=== PATIENT | male | born 1960 | race Caucasian/White ===

== ENCOUNTER 2017-09-04 15:53 | Inpatient (IN) | payer OTHER ==
[~2017-09-04 15:53] MED LIST: KETO10 PO; LORTA5 PO; PHEN37.511 PO
[2017-09-04] MEDS ORDERED: DIPHTH/TETANUS/ACEL PERTUSSIS (BOOSTER) 0.5 ML VIAL/PFS IM ONE (16:01)
[2017-09-04 16:12] VITALS: O2SAT 100
[2017-09-04 16:17] LABS: BASOPHIL # 0.1 TH/MM3 (0-0.2); BASOPHIL % 0.7 % (0.0-2.0); EOSINOPHIL # 0.3 TH/MM3 (0-0.4); EOSINOPHIL % 2.5 % (0.0-4.0); HEMATOCRIT 45.7 % (39.0-51.0); HEMOGLOBIN 15.3 GM/DL (13.0-17.0); LYMPH % 29.6 % (9.0-44.0); LYMPHOCYTE # 3.4 TH/MM3 (1.0-4.8); MEAN CELL VOLUME 89.7 FL (80.0-100.0); MEAN CORPUSCULAR HEMOGLOBIN 30.1 PG (27.0-34.0); MEAN CORPUSCULAR HGB CONC 33.5 % (32.0-36.0); MEAN PLATELET VOLUME 7.8 FL (7.0-11.0); MONO % 7.2 % (0.0-8.0); MONOCYTE # 0.8 TH/MM3 (0-0.9); PLATELET COUNT 256 TH/MM3 (150-450); RED BLOOD COUNT 5.09 MIL/MM3 (4.50-5.90); WHITE BLOOD COUNT 11.6 TH/MM3 (4.0-11.0)
[2017-09-04] MEDS ORDERED: IOHEXOL 350 MG/ML 10 ML VIAL (for RAD DIAG) IVCONTRAST ONE (16:22)
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
[2017-09-04 16:27] LABS: INTERNATIONAL NORMALIZED RATIO 1.1 RATIO; PROTHROMBIN TIME - PATIENT 10.9 SEC (9.8-11.6)
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
[2017-09-04 16:45] VITALS: BP 106/61; PULSE 68; RESP 18; O2SAT 100
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
[2017-09-04] MEDS ORDERED: HYDROmorphone HCL PF 2 MG/ML VIAL IVS ONE (17:30)
[2017-09-04] MEDS ORDERED: ONDANSETRON HCL 4 MG/2 ML VIAL IV PUSH ONE (17:30)
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
[2017-09-04 18:07] VITALS: BP 109/64; PULSE 64; RESP 18; O2SAT 100
[2017-09-04 18:35] VITALS: BP 108/60; PULSE 62; RESP 18; O2SAT 100
[2017-09-04] MEDS ORDERED: SODIUM CHLOR 0.9% 1000 ML INJ 1,000 ML IV SCH (18:37)
[2017-09-04] MEDS ORDERED: KETOROLAC TROMETHAMINE 30 MG/ML (IVP) VIAL IVP PRN (18:45)
[2017-09-04] MEDS ORDERED: ACETAMINOPHEN/HYDROcodone 325 MG/5 MG TAB PO PRN (18:45)
[2017-09-04] MEDS ORDERED: CHLORHEXIDINE GLUCONATE 2 % 1 PACK (2 CLOTHS) TOP PRN (18:45)
[2017-09-04] MEDS ORDERED: MISCELLANEOUS NURSING INFORMATION XX SCH (18:45)
[2017-09-04] MEDS ORDERED: ASPI81CH6 CHEW (19:10)
[2017-09-04 19:28] VITALS: BP 104/62; PULSE 77; RESP 18; O2SAT 98
[2017-09-04] MEDS: PANTOPRAZOLE SODIUM 40 MG VIAL IVP SCH (19:44)
[2017-09-04 20:30] VITALS: BP 111/76; PULSE 76; RESP 18; TEMP 97.8; O2SAT 97
[2017-09-04] MEDS: ACETAMINOPHEN/HYDROcodone 325 MG/5 MG TAB PO PRN (21:02)
[2017-09-04] MEDS: DOCUSATE SODIUM 100 MG CAP PO SCH (21:02)
[2017-09-04] MEDS: BACITRACIN TOP OINT 15 GM TUBE TOP SCH (21:02)
[2017-09-04] MEDS: MORPHINE SULFATE 2 MG/ML INJ IV PUSH PRN (23:14)
[2017-09-04] MEDS: METHOCARBAMOL INJ 1,000 MG in SODIUM CHLOR 0.9% 250 ML INJ 240 ML IV SCH (23:14)
[2017-09-04] MEDS ORDERED: ROBA500T PO (23:40)
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
[2017-09-05] VITALS (9 sets, daily range): BP systolic 81–113; BP diastolic 61–80; PULSE 80–93; RESP 17–18; TEMP 95.5–98.7; O2SAT 93–98
[2017-09-05] MEDS: KETOROLAC TROMETHAMINE 30 MG/ML (IVP) VIAL IV PUSH SCH ×4 (00:30→16:13)
[2017-09-05] MEDS ORDERED: CHLORHEXIDINE GLUCONATE 2 % 1 PACK (2 CLOTHS) TOP SCH (04:00)
[2017-09-05] MEDS: ACETAMINOPHEN/HYDROcodone 325 MG/5 MG TAB PO PRN ×5 (04:41→21:15)
[2017-09-05] MEDS: METHOCARBAMOL INJ 1,000 MG in SODIUM CHLOR 0.9% 250 ML INJ 240 ML IV SCH ×2 (05:54→13:26)
[2017-09-05 06:18] LABS: AUTOMATED NEUTROPHIL # 10.6 TH/MM3 (1.8-7.7); BASOPHIL % 0.2 % (0.0-2.0); EOSINOPHIL % 0.1 % (0.0-4.0); HEMATOCRIT 41.3 % (39.0-51.0); HEMOGLOBIN 13.9 GM/DL (13.0-17.0); LYMPH % 8.5 % (9.0-44.0); LYMPHOCYTE # 1.1 TH/MM3 (1.0-4.8); MEAN CELL VOLUME 90.9 FL (80.0-100.0); MEAN CORPUSCULAR HEMOGLOBIN 30.6 PG (27.0-34.0); MEAN CORPUSCULAR HGB CONC 33.7 % (32.0-36.0); MEAN PLATELET VOLUME 8.1 FL (7.0-11.0); MONOCYTE # 1.5 TH/MM3 (0-0.9); NEUT % 80.2 % (16.0-70.0); PLATELET COUNT 226 TH/MM3 (150-450); RED BLOOD COUNT 4.55 MIL/MM3 (4.50-5.90); RED CELL DISTRIBUTION WIDTH 13.3 % (11.6-17.2); WHITE BLOOD COUNT 13.2 TH/MM3 (4.0-11.0)
[2017-09-05 06:36] LABS: BICARBONATE 20.9 MEQ/L (21.0-32.0); CALCIUM 7.9 MG/DL (8.5-10.1); CREATININE 1.33 MG/DL (0.60-1.30)
[2017-09-05] MEDS: SODIUM CHLORIDE 0.9% FLUSH 10 ML FLUSH IV FLUSH PRN (08:18)
[2017-09-05] MEDS: MAGNESIUM HYDROXIDE SUSP 30 ML CUP PO SCH ×2 (08:18→21:14)
[2017-09-05] MEDS: LIDOCAINE HCL 5% PATCH T-DERMAL SCH (08:18)
[2017-09-05] MEDS: DOCUSATE SODIUM 100 MG CAP PO SCH ×2 (08:18→21:15)
[2017-09-05] MEDS: BACITRACIN TOP OINT 15 GM TUBE TOP SCH ×2 (08:25→21:15)
--- NOTE | 2017-09-05 09:29 | HHI.PR ---
Subjective Subjective Notes PTD: 1 Patient lying in bed. No distress noted. Patient states, "it's hurting. It can go from 0-20 real fast" Patient states he lives with his in [place]. Objective Vitals/I&O Vital Signs Date Time Temp Pulse Resp B/P (MAP) Pulse Ox O2 Delivery O2 Flow Rate FiO2 09/05/17 08:17 94/62 (73) 09/05/17 07:30 96.6 80 18 93 09/04/17 19:28 Nasal Cannula 2.00 Labs Laboratory Tests Test 09/04/17 16:00 09/05/17 04:45 White Blood Count 11.6 13.2 Red Blood Count 5.09 4.55 Hemoglobin 15.3 13.9 Bedside Hemoglobin 16.0 Hematocrit 45.7 41.3 Bedside Hematocrit 47.0 Mean Corpuscular Volume 89.7 90.9 Mean Corpuscular Hemoglobin 30.1 30.6 Mean Corpuscular Hemoglobin Concent 33.5 33.7 Red Cell Distribution Width 13.0 13.3 Platelet Count 256 226 Mean Platelet Volume 7.8 8.1 Neutrophils (%) (Auto) 60.0 80.2 Lymphocytes (%) (Auto) 29.6 8.5 Monocytes (%) (Auto) 7.2 11.0 Eosinophils (%) (Auto) 2.5 0.1 Basophils (%) (Auto) 0.7 0.2 Neutrophils # (Auto) 7.0 10.6 Lymphocytes # (Auto) 3.4 1.1 Monocytes # (Auto) 0.8 1.5 Eosinophils # (Auto) 0.3 0.0 Basophils # (Auto) 0.1 0.0 CBC Comment DIFF FINAL DIFF FINAL Differential Comment Prothrombin Time 10.9 Prothromb Time International Ratio 1.1 Activated Partial Thromboplast Time 22.9 Bedside Sodium 142 Bedside Potassium 3.8 Bedside Chloride 101 Bedside Blood Urea Nitrogen 16 Bedside Creatinine 1.2 Bedside Glucose 106 Blood Urea Nitrogen 24 Creatinine 1.33 Random Glucose 161 Calcium Level 7.9 Sodium Level 138 Potassium Level 4.9 Chloride Level 108 Carbon Dioxide Level 20.9 Anion Gap 9 Estimat Glomerular Filtration Rate 46 Radiology Last Impressions Pelvis X-Ray 09/04/17 1559 Signed Impressions: Service Date/Time: Monday, September 04, 2017 15:58 - CONCLUSION: No gross evidence of fracture. Prabhu Domingo MD Head CT 09/04/17 1559 Signed Impressions: Service Date/Time: Monday, September 04, 2017 16:13 - CONCLUSION: No acute intracranial findings. Prabhu Domingo MD Chest X-Ray 09/04/17 155 Signed Impressions: Service Date/Time: Monday, September 04, 2017 15:58 - CONCLUSION: No gross acute cardiopulmonary disease identified. Prabhu Domingo MD Chest CT 09/04/17 1559 Signed Impressions: Service Date/Time: Monday, September 04, 2017 16:22 - CONCLUSION: Multiple left-sided rib fractures. Small left pneumothorax. Prabhu Domingo MD Cervical Spine CT 09/04/17 1559 Signed Impressions: Service Date/Time: Monday, September 04, 2017 16:13 - CONCLUSION: 1. No evidence of fracture. 2. Multilevel degenerative findings. Prominent right- sided facet arthrosis at C4-5. 3. Broad-based disc osteophyte complex at C6-7 resulting in minimal central canal narrowing. Prabhu Domingo MD Abdomen/Pelvis CT 09/04/17 1559 Signed Impressions: Service Date/Time: Monday, September 04, 2017 16:22 - CONCLUSION: Multiple displaced left-sided rib fractures. Small left pneumothorax. These findings will also be evaluated on chest CT. No evidence of acute traumatic injury in the abdomen. Prabhu Domingo MD Shoulder X-Ray 09/04/17 0000 Signed Impressions: Service Date/Time: Monday, September 04, 2017 15:58 - CONCLUSION: Lateral left-sided rib fractures. Prabhu Domingo MD Narrative Exam GENERAL: This is a 69-year-old male lying in bed. No distress noted. SKIN: Warm and dry. HEAD: Atraumatic. Normocephalic. EYES: PERRLA ENT: No nasal bleeding or discharge. Mucous membranes pink and moist. NECK: Trachea midline. No JVD. CARDIOVASCULAR: Regular rate and rhythm. RESPIRATORY: NC 2L. No accessory muscle use. Lungs are clear to auscultation. Breath sounds equal bilaterally. No distress or dyspnea. GASTROINTESTINAL: BS + x 4 quads. Abdomen soft, non-tender, nondistended. MUSCULOSKELETAL: Extremities without cyanosis, or edema. + peripheral pulses x 4 extremities. Warm with good capillary refill and sensation. MAEW. NEUROLOGICAL: Awake and alert. Normal speech and pattern. A/P Problem List: (1) Ribs, multiple fractures ICD Codes: S22.49XA - Multiple fractures of ribs, unspecified side, initial encounter for closed fracture Status: Acute (2) Pneumothorax ICD Codes: J93.9 - Pneumothorax, unspecified Status: Acute Assessment and Plan [place]: This is a 69 year old male who was involved in an [facility]. + Helmet. He was found on the side of the road. GCS 14 with repetitive questioning. INJURIES: LEFT rib fx (3-8) LEFT PTX PMHx: Arthritis Procedures: Consults: Case management. Diet: Regular diet. Tolerating po diet. Encourage good po intake with each meal. Pulmonary: Encourage good pulmonary toileting. IS at bedside and pt encouraged to use. Rationale for use explained to patient, and verbalized understanding. Intensified with a salima and FAITH PAP. Still waiting for morning chest x-ray to be completed - reordered chest x-ray to facilitate completion. PAIN Management: [place] 5-10 mg q 4h. Morphine 2 mg q 1h. Robaxin 1000 mg IV q 8h. Toradol 15 mg q 6h. Lidoderm patch Activity: OOB. PT and ordered GI prophylaxis: Protonix IV Bowel regimen: Colace and MOM. LBM: 0 DVT prophylaxis: Mechanical VTE with SCDs. Chemical management with Lovenox 30 BID SQ. DC Planning: Case management consulted for assistance with final discharge disposition. Emotional support provided to patient and family at bedside and plan of care discussed. Discussed with RN at bedside. Discussed pt condition and plan of care with collaborating trauma surgeon. Patient is hemodynamically stable and being managed on the med/surg floor. The trauma team will round each day, and evaluate plan of care on a daily basis. LEFT rib fx (3-8) LEFT PTX O2 as needed Supportive care Aggressive pulmonary toileting Pain management Chest x-ray as needed Still waiting for a morning chest x-ray to be completed - reordered chest x-ray. PT ordered Encourage out of bed Lovenox for DVT prophylaxis Problem Qualifiers (1) Ribs, multiple fractures: Qualified Codes: S22.42XA - Multiple fractures of ribs, left side, initial encounter for closed fracture (2) Pneumothorax: Qualified Codes: S27.0XXA - Traumatic pneumothorax, initial encounter Lucero Blanchard Sep 05, 2017 09:29
--- NOTE | 2017-09-05 11:21 | RADRPT ---
EXAM DATE/TIME: 09/05/2017 10:31 [facility] COMPARISON: CHEST SINGLE AP, September 04, 2017, 15:58. INDICATIONS : Trauma. MEDICAL HISTORY : None. SURGICAL HISTORY : None. ENCOUNTER: Subsequent ACUITY: 1 day PAIN SCORE: 10/10 LOCATION: Left chest Posterior. FINDINGS: Multiple rib fractures on the left the large left pleural effusion, probably blood. Right lung clear . The heart and pulmonary vascularity are normal. Minimal left subcutaneous emphysema. CONCLUSION: Multiple left rib fractures with large left pleural effusion. Carlos Eastman MD FACR on September 05, 2017 at 11:19 Board Certified Radiologist. This report was verified electronically.
[2017-09-05] MEDS: ENOXAPARIN SODIUM 30 MG/0.3 ML SYRINGE SQ SCH (12:02)
[2017-09-05] MEDS: PANTOPRAZOLE SODIUM 40 MG VIAL IVP SCH (16:12)
[2017-09-05] MEDS: METHOCARBAMOL 500 MG TAB PO SCH (21:15)
[2017-09-05 22:46] LABS: HEMATOCRIT 36.8 % (39.0-51.0); HEMOGLOBIN 12.4 GM/DL (13.0-17.0); MEAN CELL VOLUME 90.2 FL (80.0-100.0); MEAN CORPUSCULAR HEMOGLOBIN 30.4 PG (27.0-34.0); MEAN CORPUSCULAR HGB CONC 33.7 % (32.0-36.0); PLATELET COUNT 215 TH/MM3 (150-450); RED BLOOD COUNT 4.08 MIL/MM3 (4.50-5.90); RED CELL DISTRIBUTION WIDTH 13.3 % (11.6-17.2); WHITE BLOOD COUNT 13.5 TH/MM3 (4.0-11.0)
[2017-09-06] VITALS (8 sets, daily range): BP systolic 101–135; BP diastolic 56–72; PULSE 75–90; RESP 17–18; TEMP 97.2–99.4; O2SAT 92–98
[2017-09-06] MEDS: KETOROLAC TROMETHAMINE 30 MG/ML (IVP) VIAL IV PUSH SCH ×5 (00:13→23:06)
[2017-09-06] MEDS: ACETAMINOPHEN/HYDROcodone 325 MG/5 MG TAB PO PRN (05:17)
[2017-09-06] MEDS: METHOCARBAMOL 500 MG TAB PO SCH ×3 (05:17→23:06)
--- NOTE | 2017-09-06 06:17 | RADRPT ---
EXAM DATE/TIME: 09/06/2017 05:10 [facility] COMPARISON: CHEST SINGLE AP, September 05, 2017, 10:31. INDICATIONS : Short of breath and congestion. MEDICAL HISTORY : None. SURGICAL HISTORY : None. ENCOUNTER: Subsequent ACUITY: 2 days PAIN SCORE: 0/10 LOCATION: Bilateral chest FINDINGS: Multiple rib fractures are again seen. Left basilar opacity is present may be due to a combination of consolidation and or pleural effusion. Mild right lung base atelectasis and/or infiltrate is seen. N o definite pneumothorax is seen for technique. CONCLUSION: Left basilar opacity is present may be due to a combination of consolidation and or pleural effusion and a slight right lung base atelectasis and/or infiltrate. Aba Walls MD on September 06, 2017 at 6:15 Board Certified Radiologist. This report was verified electronically.
[2017-09-06] MEDS: LIDOCAINE HCL 5% PATCH T-DERMAL SCH (09:00)
[2017-09-06] MEDS: MAGNESIUM HYDROXIDE SUSP 30 ML CUP PO SCH ×2 (09:00→19:48)
[2017-09-06] MEDS: DOCUSATE SODIUM 100 MG CAP PO SCH ×2 (09:00→19:48)
[2017-09-06] MEDS: BACITRACIN TOP OINT 15 GM TUBE TOP SCH ×2 (09:07→19:51)
[2017-09-06] MEDS: MORPHINE SULFATE 2 MG/ML INJ IV PUSH PRN (11:47)
[2017-09-06] MEDS ORDERED: LORazepam 2 MG/ML VIAL ONE (11:47)
[2017-09-06] MEDS ORDERED: LIDOCAINE HCL 1% 20 ML VIAL ONE (11:49)
[2017-09-06] MEDS ORDERED: oxyCODONE/ACETAMINOPHEN 5 MG/325 MG TAB PO PRN (12:15)
--- NOTE | 2017-09-06 12:22 | HHI.PR ---
Subjective Subjective Notes PTD: 2 Patient lying in bed. No distress noted. at bedside. Patient states, "I have no pain if I'm just sitting here doing nothing, but I go from 0-20 if I move." "It's more of a muscle spasm". Objective Vitals/I&O Vital Signs Date Time Temp Pulse Resp B/P (MAP) Pulse Ox O2 Delivery O2 Flow Rate FiO2 09/06/17 12:00 99.2 75 18 108/56 (73) 93 09/06/17 08:13 Nasal Cannula 3.00 Labs Laboratory Tests Test 09/05/17 22:18 White Blood Count 13.5 Red Blood Count 4.08 Hemoglobin 12.4 Hematocrit 36.8 Mean Corpuscular Volume 90.2 Mean Corpuscular Hemoglobin 30.4 Mean Corpuscular Hemoglobin Concent 33.7 Red Cell Distribution Width 13.3 Platelet Count 215 Mean Platelet Volume 8.0 Radiology Last 48 hours Impressions Chest X-Ray 09/06/17 0600 Signed Impressions: Service Date/Time: Wednesday, September 06, 2017 05:10 - CONCLUSION: Left basilar opacity is present may be due to a combination of consolidation and or pleural effusion and a slight right lung base atelectasis and/or infiltrate. Aba Walls MD Chest X-Ray 09/05/17 0000 Signed Impressions: Service Date/Time: Tuesday, September 05, 2017 10:31 - CONCLUSION: Multiple left rib fractures with large left pleural effusion. Carlos Eastman MD FACR Pelvis X-Ray 09/04/17 1559 Signed Impressions: Service Date/Time: Monday, September 04, 2017 15:58 - CONCLUSION: No gross evidence of fracture. Prabhu Domingo MD Head CT 09/04/17 155 Signed Impressions: Service Date/Time: Monday, September 04, 2017 16:13 - CONCLUSION: No acute intracranial findings. Prabhu Domingo MD Chest X-Ray 09/04/17 1559 Signed Impressions: Service Date/Time: Monday, September 04, 2017 15:58 - CONCLUSION: No gross acute cardiopulmonary disease identified. Prabhu Domingo MD Chest CT 09/04/17 1559 Signed Impressions: Service Date/Time: Monday, September 04, 2017 16:22 - CONCLUSION: Multiple left-sided rib fractures. Small left pneumothorax. Prabhu Domingo MD Cervical Spine CT 09/04/17 1559 Signed Impressions: Service Date/Time: Monday, September 04, 2017 16:13 - CONCLUSION: 1. No evidence of fracture. 2. Multilevel degenerative findings. Prominent right- sided facet arthrosis at C4-5. 3. Broad-based disc osteophyte complex at C6-7 resulting in minimal central canal narrowing. Prabhu Domingo MD Abdomen/Pelvis CT 09/04/17 1559 Signed Impressions: Service Date/Time: Monday, September 04, 2017 16:22 - CONCLUSION: Multiple displaced left-sided rib fractures. Small left pneumothorax. These findings will also be evaluated on chest CT. No evidence of acute traumatic injury in the abdomen. Prabhu Domingo MD Narrative Exam GENERAL: This is a 69-year-old male lying in bed. No distress noted. SKIN: Warm and dry. HEAD: Atraumatic. Normocephalic. EYES: PERRLA ENT: No nasal bleeding or discharge. Mucous membranes pink and moist. NECK: Trachea midline. No JVD. CARDIOVASCULAR: Regular rate and rhythm. RESPIRATORY: O2 NC 3L. No accessory muscle use. Lungs with wheezing and rhonchi auscultated. Worse on the LEFT side. Breath sounds equal bilaterally. No distress or dyspnea. GASTROINTESTINAL: BS + x 4 quads. Abdomen soft, non-tender, nondistended. MUSCULOSKELETAL: Extremities without cyanosis, or edema. + peripheral pulses x 4 extremities. Warm with good capillary refill and sensation. MAEW. NEUROLOGICAL: Awake and alert. Normal speech and pattern. A/P Problem List: (1) Ribs, multiple fractures ICD Codes: S22.49XA - Multiple fractures of ribs, unspecified side, initial encounter for closed fracture Status: Acute (2) Pneumothorax ICD Codes: J93.9 - Pneumothorax, unspecified Status: Acute Assessment and Plan [place]: This is a 69 year old male who was involved in an [facility]. + Helmet. He was found on the side of the road. GCS 14 with repetitive questioning. INJURIES: LEFT rib fx (3-8) LEFT PTX PMHx: Arthritis Procedures: 09/06: Plan for CT guided chest tube today (LEFT) Consults: Case management. Diet: Regular diet. Tolerating po diet. Encourage good po intake with each meal. Pulmonary: Encourage good pulmonary toileting. IS at bedside and pt encouraged to use. Rationale for use explained to patient, and verbalized understanding. Intensified with a cappella and EZ PAP. A.m. chest x-ray shows left basilar opacity. Consolidation versus pleural effusion. Plan for CT guided chest tube to be done today. PAIN Management: DC [place]. Changed to Percocet 5-10 mg q 4h. Morphine 2 mg q 1h. Robaxin 1000 mg IV q 8h. Toradol 15 mg q 6h. Lidoderm patch Activity: OOB. PT and ordered. GI prophylaxis: Protonix IV Bowel regimen: Colace and MOM. Lactulose daily. LBM: 0 DVT prophylaxis: Mechanical VTE with SCDs. Chemical management with Lovenox 30 BID SQ. DC Planning: Case management consulted for assistance with final discharge disposition. Emotional support provided to patient and family at bedside and plan of care discussed. Discussed with RN at bedside. Discussed pt condition and plan of care with collaborating trauma surgeon. Patient is hemodynamically stable and being managed on the med/surg floor. The trauma team will round each day, and evaluate plan of care on a daily basis. LEFT rib fx (3-8) LEFT PTX O2 as needed Supportive care Aggressive pulmonary toileting Pain management Today's chest x-ray shows left basilar opacity. Consolidation versus pleural effusion Plan for CT guided left chest tube placement today PT ordered Encourage out of bed Lovenox for DVT prophylaxis - on hold for procedure Problem Qualifiers (1) Ribs, multiple fractures: Qualified Codes: S22.42XA - Multiple fractures of ribs, left side, initial encounter for closed fracture (2) Pneumothorax: Qualified Codes: S27.0XXA - Traumatic pneumothorax, initial encounter Lucero Blanchard Sep 06, 2017 12:22
--- NOTE | 2017-09-06 12:57 | PD.RAD ---
Post CT Procedure Prog Note Pre Procedure Diagnosis: (1) Ribs, multiple fractures (2) Pneumothorax Post Procedure Diagnosis: (1) Pneumothorax (2) Ribs, multiple fractures Procedure Date: Sep 06, 2017 Supervising Radiologist: Bradley Jackson Anesthesia: Conscious Sedation Plan of Activity Patient to Unit: Nursing Unit Patient Condition: Good See PACS Report for procedural detail/treatment Bradley Jackson MD Sep 06, 2017 12:57
[2017-09-06] MEDS: oxyCODONE/ACETAMINOPHEN 10 MG/325 MG TAB PO PRN ×2 (14:56→19:48)
[2017-09-06] MEDS: PANTOPRAZOLE SOD 40 MG DELAYED RELEASE TAB PO SCH (17:48)
[2017-09-07] VITALS: BP 125/78; PULSE 88; RESP 16; TEMP 98; O2SAT 94
[2017-09-07 04:00] VITALS: BP 129/68; PULSE 77; RESP 18; TEMP 98.1; O2SAT 93
[2017-09-07 04:41] LABS: AUTOMATED NEUTROPHIL # 7.9 TH/MM3 (1.8-7.7); BASOPHIL # 0.1 TH/MM3 (0-0.2); BASOPHIL % 0.5 % (0.0-2.0); EOSINOPHIL # 0.2 TH/MM3 (0-0.4); EOSINOPHIL % 1.7 % (0.0-4.0); HEMATOCRIT 32.7 % (39.0-51.0); HEMOGLOBIN 11.1 GM/DL (13.0-17.0); LYMPH % 13.6 % (9.0-44.0); LYMPHOCYTE # 1.5 TH/MM3 (1.0-4.8); MEAN CELL VOLUME 89.8 FL (80.0-100.0); MEAN CORPUSCULAR HEMOGLOBIN 30.4 PG (27.0-34.0); MEAN CORPUSCULAR HGB CONC 33.8 % (32.0-36.0); MEAN PLATELET VOLUME 7.8 FL (7.0-11.0); MONO % 13.5 % (0.0-8.0); MONOCYTE # 1.5 TH/MM3 (0-0.9); NEUT % 70.7 % (16.0-70.0); PLATELET COUNT 220 TH/MM3 (150-450); RED BLOOD COUNT 3.64 MIL/MM3 (4.50-5.90); RED CELL DISTRIBUTION WIDTH 12.9 % (11.6-17.2); WHITE BLOOD COUNT 11.2 TH/MM3 (4.0-11.0)
[2017-09-07 05:14] LABS: ALBUMIN 2.5 GM/DL (3.4-5.0); ALKALINE PHOSPHATASE 43 U/L (45-117); ALT (GPT) 22 U/L (12-78); AST (GOT) 29 U/L (15-37); BICARBONATE 27.5 MEQ/L (21.0-32.0); BLOOD UREA NITROGEN 37 MG/DL (7-18); CALCIUM 8.3 MG/DL (8.5-10.1); CHLORIDE 104 MEQ/L (98-107); CREATININE 1.11 MG/DL (0.60-1.30); GLOMERULAR FILTRATION RATE 69 ML/MIN (>89); GLUCOSE,RANDOM 118 MG/DL (74-106); SODIUM (NA) 136 MEQ/L (136-145); TOTAL BILIRUBIN ADULT 0.5 MG/DL (0.2-1.0); TOTAL PROTEIN 5.7 GM/DL (6.4-8.2)
[2017-09-07] MEDS: METHOCARBAMOL 500 MG TAB PO SCH ×3 (05:22→23:02)
[2017-09-07] MEDS: KETOROLAC TROMETHAMINE 30 MG/ML (IVP) VIAL IV PUSH SCH ×4 (05:25→23:03)
--- NOTE | 2017-09-07 07:32 | RADRPT ---
EXAM DATE/TIME: 09/07/2017 06:09 [facility] COMPARISON: CHEST SINGLE AP, September 05, 2017, 10:31. CHEST SINGLE AP, September 06, 2017, 5:10. INDICATIONS : <<Trauma patient with multiple left rib fractures and small left pneumothorax. Patient is status post chest tube placement.>> MEDICAL HISTORY : Left pneumothorax SURGICAL HISTORY : chest tube placement ENCOUNTER: Subsequent ACUITY: 3 days PAIN SCORE: 10/10 LOCATION: Left chest FINDINGS: A single AP portable expiratory view the chest was obtained and demonstrates interval placement of le ft-sided chest tube. There is no visualized pneumothorax. Multiple left-sided rib fractures are again noted and there is blunting of the left costophrenic angle. The left hemidiaphragm is partially obsc ured. The heart size is within normal limits. There is no mediastinal shift. CONCLUSION: 1. Left-sided chest tube in place with no visualized pneumothorax. 2. Hazy opacity in the left lung base with blunting of the left costophrenic angle and obscuration of left hemidiaphragm which could indicate small effusion versus lung contusion. Raimundo López MD on September 07, 2017 at 7:29 Board Certified Radiologist. This report was verified electronically.
[2017-09-07 08:00] VITALS: BP 133/69; PULSE 67; RESP 18; TEMP 97.4; O2SAT 95
[2017-09-07] MEDS: LACTULOSE SYRUP 20 GM/30 ML CUP PO SCH (09:00)
[2017-09-07] MEDS: MAGNESIUM HYDROXIDE SUSP 30 ML CUP PO SCH ×2 (09:00→20:07)
[2017-09-07] MEDS: DOCUSATE SODIUM 100 MG CAP PO SCH ×2 (09:07→20:07)
[2017-09-07] MEDS: oxyCODONE/ACETAMINOPHEN 10 MG/325 MG TAB PO PRN ×4 (09:07→23:03)
[2017-09-07] MEDS: LIDOCAINE HCL 5% PATCH T-DERMAL SCH (09:08)
[2017-09-07] MEDS: BACITRACIN TOP OINT 15 GM TUBE TOP SCH ×2 (09:19→20:08)
--- NOTE | 2017-09-07 09:46 | RADRPT ---
EXAM DATE/TIME: 09/06/2017 12:26 INDICATIONS : History of trauma with symptomatic large hemothorax. SEDATION TIME: 30 minutes MEDICATION(S): 1.) 200 fentanyl (Sublimaze) IV 2.) 2 lorazepam (Ativan) IV DEVICE(S): 1.) 18 gauge Mccray blunt needle MEDICAL HISTORY : None. SURGICAL HISTORY : None. ENCOUNTER: Initial ACUITY: 1 day PAIN SCORE: 0/10 LOCATION: Left chest PROCEDURE: PROCEDURE : 1. CT guided chest tube placement. 2. Conscious sedation with continuous EKG and oximetry monitoring. The risks, benefits and alternatives to the procedure were explained and verbal and written consent w as obtained. The site was prepped in sterile fashion. Full sterile technique was used, including ca p, mask, sterile gloves and gown and a large sterile sheet. Hand hygiene and 2% chlorhexidine and/or betadine/alcohol prep was utilized per protocol for cutaneous antisepsis. The skin and subcutaneous tissues were infiltrated with local anesthetic solution. Using automated exposure control and adjus tment of the mA and/or kV according to patient size, radiation dose was kept as low as reasonably ach ievable to obtain optimal diagnostic quality images. DICOM format image data is available electronic ally for review and comparison. With CT guidance the chest was punctured and the prescribed catheter was placed in the left posterior hemithorax. Wall suction was applied. Post procedure images demonstrate satisfactory position of th e tube. The catheter was sutured in place. Conscious sedation was performed with the prescribed dosages and duration as above. The patient william ated the procedure well and there were no complications. EKG and oximetry remained stable throughout the procedure. The patient was sent to post anesthesia recovery in stable condition. CONCLUSION: 1. Technically successful CT-guided placement of 26 [place] left sided chest tube for treatment of sym ptomatic posttraumatic hemothorax. Bradley Jackson MD on September 07, 2017 at 9:20 Board Certified Radiologist. This report was verified electronically.
[2017-09-07 12:00] VITALS: BP 121/77; PULSE 80; RESP 17; TEMP 96.7; O2SAT 94
--- NOTE | 2017-09-07 13:21 | HHI.PR ---
Subjective Subjective Notes PTD: 3 Patient OOB sitting in a recliner chair. No distress noted. "I got my chest tube. It's a good thing, because I was about ready to drown." Patient states, "as long as I don't move, the pain is okay. at bedside. She states, "he needs to be able to be more mobile before I can take him home." Objective Vitals/I&O Vital Signs Date Time Temp Pulse Resp B/P (MAP) Pulse Ox O2 Delivery O2 Flow Rate FiO2 09/07/17 12:00 96.7 80 17 121/77 (92) 94 09/06/17 22:00 Nasal Cannula 5.00 Labs Laboratory Tests Test 09/07/17 04:00 White Blood Count 11.2 Red Blood Count 3.64 Hemoglobin 11.1 Hematocrit 32.7 Mean Corpuscular Volume 89.8 Mean Corpuscular Hemoglobin 30.4 Mean Corpuscular Hemoglobin Concent 33.8 Red Cell Distribution Width 12.9 Platelet Count 220 Mean Platelet Volume 7.8 Neutrophils (%) (Auto) 70.7 Lymphocytes (%) (Auto) 13.6 Monocytes (%) (Auto) 13.5 Eosinophils (%) (Auto) 1.7 Basophils (%) (Auto) 0.5 Neutrophils # (Auto) 7.9 Lymphocytes # (Auto) 1.5 Monocytes # (Auto) 1.5 Eosinophils # (Auto) 0.2 Basophils # (Auto) 0.1 CBC Comment DIFF FINAL Differential Comment Blood Urea Nitrogen 37 Creatinine 1.11 Random Glucose 118 Total Protein 5.7 Albumin 2.5 Calcium Level 8.3 Alkaline Phosphatase 43 Aspartate Amino Transf (AST/SGOT) 29 Alanine Aminotransferase (ALT/SGPT) 22 Total Bilirubin 0.5 Sodium Level 136 Potassium Level 4.4 Chloride Level 104 Carbon Dioxide Level 27.5 Anion Gap 5 Estimat Glomerular Filtration Rate 69 Radiology Last 48 hours Impressions Chest X-Ray 09/07/17 0000 Signed Impressions: Service Date/Time: Thursday, September 07, 2017 06:09 - CONCLUSION: 1. Left-sided chest tube in place with no visualized pneumothorax. 2. Hazy opacity in the left lung base with blunting of the left costophrenic angle and obscuration of left hemidiaphragm which could indicate small effusion versus lung contusion. Raimundo López MD Chest X-Ray 09/06/17 0600 Signed Impressions: Service Date/Time: Wednesday, September 06, 2017 05:10 - CONCLUSION: Left basilar opacity is present may be due to a combination of consolidation and or pleural effusion and a slight right lung base atelectasis and/or infiltrate. Aba Walls MD Narrative Exam GENERAL: This is a 69-year-old male lying OOB in a recliner chair No distress noted. SKIN: Warm and dry. HEAD: Atraumatic. Normocephalic. EYES: PERRLA ENT: No nasal bleeding or discharge. Mucous membranes pink and moist. NECK: Trachea midline. No JVD. CARDIOVASCULAR: Regular rate and rhythm. RESPIRATORY: O2 NC 3L. No accessory muscle use. Lungs with very fine rhonchi noted on the left. Breath sounds equal bilaterally. No distress or dyspnea. LEFT lateral chest tube in place to Pleur-evac drainage system. 40 cm suction. No air leak noted. GASTROINTESTINAL: BS + x 4 quads. Abdomen soft, non-tender, nondistended. MUSCULOSKELETAL: Extremities without cyanosis, or edema. + peripheral pulses x 4 extremities. Warm with good capillary refill and sensation. MAEW. NEUROLOGICAL: Awake and alert. Normal speech and pattern. A/P Problem List: (1) Ribs, multiple fractures ICD Codes: S22.49XA - Multiple fractures of ribs, unspecified side, initial encounter for closed fracture Status: Acute (2) Pneumothorax ICD Codes: J93.9 - Pneumothorax, unspecified Status: Acute Assessment and Plan [place]: This is a 69 year old male who was involved in an [facility]. + Helmet. He was found on the side of the road. GCS 14 with repetitive questioning. INJURIES: LEFT rib fx (3-8) LEFT PTX PMHx: Arthritis Procedures: 09/06: CT guided chest tube (LEFT) Consults: Case management. Diet: Regular diet. Tolerating po diet. Encourage good po intake with each meal. Pulmonary: Encourage good pulmonary toileting. IS at bedside and pt encouraged to use. Rationale for use explained to patient, and verbalized understanding. Intensified with a cappella and EZ PAP. LEFT lateral chest tube in place to Pleur-evac drainage system. 40 cc of suction. No air leak noted. Dressing CDI. CT output = 810 ml/24 hrs Today's chest x-ray shows no PTX. Effusion versus lung contusion. PAIN Management: Percocet 5-10 mg q 4h. Morphine 2 mg q 4h. Robaxin 500 mg q 8h. Toradol 15 mg q 6h. Lidoderm patch. Added fentanyl patch 50 MCG due to continued pain Activity: OOB. PT and ordered. GI prophylaxis: Protonix po Bowel regimen: Colace and MOM. Lactulose daily. LBM: 0 DVT prophylaxis: Mechanical VTE with SCDs. Chemical management with Lovenox 30 BID SQ. DC Planning: Case management consulted for assistance with final discharge disposition. Emotional support provided to patient and family at bedside and plan of care discussed. Discussed with RN at bedside. Discussed pt condition and plan of care with collaborating trauma surgeon. Patient is hemodynamically stable and being managed on the med/surg floor. The trauma team will round each day, and evaluate plan of care on a daily basis. LEFT rib fx (3-8) LEFT PTX O2 as needed Supportive care Aggressive pulmonary toileting Pain management LEFT lateral chest tube in place to Pleur-evac drainage system at 40 cm suction. No air leak noted. CT output = 810 ml/24 hrs A.m. chest x-ray shows no PTX. Effusion versus lung contusion. Follow-up chest x-ray in the morning PT ordered Encourage out of bed Lovenox for DVT prophylaxis - resumed Problem Qualifiers (1) Ribs, multiple fractures: Qualified Codes: S22.42XA - Multiple fractures of ribs, left side, initial encounter for closed fracture (2) Pneumothorax: Qualified Codes: S27.0XXA - Traumatic pneumothorax, initial encounter Lucero Blanchard Sep 07, 2017 13:21
[2017-09-07] MEDS: fentaNYL 50 MCG/HR PATCH T-DERMAL SCH (13:58)
[2017-09-07 16:00] VITALS: BP 142/75; PULSE 77; RESP 16; TEMP 97.7; O2SAT 95
[2017-09-07] MEDS: PANTOPRAZOLE SOD 40 MG DELAYED RELEASE TAB PO SCH (18:17)
[2017-09-07 21:50] VITALS: BP 104/60; PULSE 86; RESP 20; TEMP 98.1; O2SAT 94
[2017-09-07] MEDS: ENOXAPARIN SODIUM 30 MG/0.3 ML SYRINGE SQ SCH (23:03)
[2017-09-08 00:55] VITALS: BP 103/60; PULSE 79; RESP 20; TEMP 98.6; O2SAT 94
[2017-09-08 04:50] VITALS: BP 112/60; PULSE 76; RESP 20; TEMP 97.9; O2SAT 94
[2017-09-08] MEDS: METHOCARBAMOL 500 MG TAB PO SCH ×3 (05:24→22:00)
[2017-09-08] MEDS: KETOROLAC TROMETHAMINE 30 MG/ML (IVP) VIAL IV PUSH SCH ×4 (05:24→23:48)
--- NOTE | 2017-09-08 06:46 | RADRPT ---
EXAM DATE/TIME: 09/08/2017 06:07 [facility] COMPARISON: CHEST EXPIRATION ONLY, September 07, 2017, 6:09. INDICATIONS : Shortness of breath. MEDICAL HISTORY : None. SURGICAL HISTORY : None. ENCOUNTER: Subsequent ACUITY: 4 - 6 days PAIN SCORE: Non-responsive. LOCATION: Bilateral chest FINDINGS: Chest tube is present on the left side. Multiple fractures are again seen. No definite pneumothorax i s seen for technique. Left basilar opacity is present may be due to a combination of consolidation an d or pleural effusion. Heart and mediastinum are unremarkable for technique. CONCLUSION: Left basilar opacity is present may be due to a combination of consolidation and or pleural effusion. Aba Walls MD on September 08, 2017 at 6:44 Board Certified Radiologist. This report was verified electronically.
[2017-09-08] MEDS ORDERED: BISACODYL EC 5 MG TABEC PO ONE (07:15)
[2017-09-08] MEDS ORDERED: BISACODYL 10 MG SUPP RECTAL ONE (07:15)
[2017-09-08 07:47] VITALS: BP 111/62; PULSE 82; RESP 19; TEMP 97.6; O2SAT 92
[2017-09-08] MEDS: LACTULOSE SYRUP 20 GM/30 ML CUP PO SCH (09:00)
[2017-09-08] MEDS: MAGNESIUM HYDROXIDE SUSP 30 ML CUP PO SCH ×2 (09:00→21:00)
[2017-09-08] MEDS: DOCUSATE SODIUM 100 MG CAP PO SCH ×2 (09:51→21:00)
[2017-09-08] MEDS: LIDOCAINE HCL 5% PATCH T-DERMAL SCH (09:51)
[2017-09-08] MEDS: BACITRACIN TOP OINT 15 GM TUBE TOP SCH ×2 (09:54→22:00)
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
[2017-09-08 11:30] VITALS: BP 117/66; PULSE 76; RESP 19; TEMP 97.6; O2SAT 92
[2017-09-08] MEDS: ENOXAPARIN SODIUM 30 MG/0.3 ML SYRINGE SQ SCH ×2 (11:51→23:48)
[2017-09-08 15:35] VITALS: BP 137/81; PULSE 86; RESP 19; TEMP 98.4; O2SAT 93
[2017-09-08] MEDS: PANTOPRAZOLE SOD 40 MG DELAYED RELEASE TAB PO SCH (17:12)
[2017-09-08] MEDS: oxyCODONE/ACETAMINOPHEN 10 MG/325 MG TAB PO PRN ×2 (17:14→22:00)
[2017-09-08 20:51] VITALS: BP 104/63; PULSE 80; RESP 18; TEMP 98.6; O2SAT 94
[2017-09-09] VITALS (8 sets, daily range): BP systolic 98–145; BP diastolic 54–87; PULSE 75–95; RESP 18–20; TEMP 96.8–98.7; O2SAT 92–96
[2017-09-09] MEDS: oxyCODONE/ACETAMINOPHEN 10 MG/325 MG TAB PO PRN ×5 (05:00→23:50)
[2017-09-09] MEDS: METHOCARBAMOL 500 MG TAB PO SCH ×3 (05:00→21:26)
--- NOTE | 2017-09-09 07:21 | RADRPT ---
EXAM DATE/TIME: 09/09/2017 06:41 [facility] COMPARISON: CHEST SINGLE AP, September 08, 2017, 6:07. INDICATIONS : Short of breath, some coughing, evaluate pneumothorax and chest tube MEDICAL HISTORY : pneumothorax SURGICAL HISTORY : chest tube ENCOUNTER: Subsequent ACUITY: 4 - 6 days PAIN SCORE: 6/10 LOCATION: Left chest FINDINGS: A single AP portable erect, expiratory view of the chest was obtained and again demonstrates the left -sided chest tube in place. Multiple left rib fractures are again visualized with no definite pneumot horax. There is mild hazy opacity again noted in the left lung base with obscuration of the left lalo diaphragm and blunting of the left costophrenic angle. There is minimal hazy opacity in the right per ihilar region outlining the minor fissure. The heart size is at the upper limits of normal. CONCLUSION: 1. New minimal hazy opacity in the right perihilar region outlining the minor fissure. 2. Left-sided chest tube in place with multiple rib fractures and no visualized pneumothorax. There i s opacity remaining at the left lung base. Raimundo López MD on September 09, 2017 at 7:18 Board Certified Radiologist. This report was verified electronically.
[2017-09-09] MEDS: MAGNESIUM HYDROXIDE SUSP 30 ML CUP PO SCH ×2 (09:00→19:37)
[2017-09-09] MEDS: LACTULOSE SYRUP 20 GM/30 ML CUP PO SCH (09:00)
[2017-09-09] MEDS: BACITRACIN TOP OINT 15 GM TUBE TOP SCH ×2 (09:00→19:39)
[2017-09-09] MEDS: DOCUSATE SODIUM 100 MG CAP PO SCH ×2 (09:53→19:37)
[2017-09-09] MEDS: LIDOCAINE HCL 5% PATCH T-DERMAL SCH (09:53)
[2017-09-09] MEDS: RESP: ALBUTEROL 2.5 MG/IPRATROPIUM 0.5 MG NEB (PRN) NEB ×2 (10:26→21:50)
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
[2017-09-09] MEDS ORDERED: AZITHROMYCIN 250 MG TAB PO ONE (11:30)
[2017-09-09] MEDS: ENOXAPARIN SODIUM 30 MG/0.3 ML SYRINGE SQ SCH ×2 (12:12→23:50)
[2017-09-09] MEDS: guaiFENesin E.R. 600 MG TAB PO SCH ×2 (12:12→19:38)
[2017-09-09] MEDS: PANTOPRAZOLE SOD 40 MG DELAYED RELEASE TAB PO SCH (19:00)
[2017-09-09] MEDS ORDERED: DOCU1CAP39 PO (19:51)
[2017-09-09] MEDS ORDERED: MAGN30S PO (19:51)
[2017-09-09] MEDS: MORPHINE SULFATE 2 MG/ML INJ IV PUSH PRN (23:50)
[2017-09-10] VITALS (7 sets, daily range): BP systolic 104–129; BP diastolic 60–74; PULSE 79–97; RESP 20–22; TEMP 95.5–98.9; O2SAT 94–97
[2017-09-10 04:20] LABS: BASOPHIL # 0.1 TH/MM3 (0-0.2); BASOPHIL % 0.6 % (0.0-2.0); EOSINOPHIL # 0.7 TH/MM3 (0-0.4); EOSINOPHIL % 5.1 % (0.0-4.0); HEMATOCRIT 33.1 % (39.0-51.0); HEMOGLOBIN 11.2 GM/DL (13.0-17.0); LYMPH % 10.5 % (9.0-44.0); LYMPHOCYTE # 1.4 TH/MM3 (1.0-4.8); MEAN CELL VOLUME 90.5 FL (80.0-100.0); MEAN CORPUSCULAR HEMOGLOBIN 30.6 PG (27.0-34.0); MEAN CORPUSCULAR HGB CONC 33.8 % (32.0-36.0); MEAN PLATELET VOLUME 6.9 FL (7.0-11.0); MONO % 14.2 % (0.0-8.0); MONOCYTE # 1.8 TH/MM3 (0-0.9); NEUT % 69.6 % (16.0-70.0); PLATELET COUNT 350 TH/MM3 (150-450); RED BLOOD COUNT 3.65 MIL/MM3 (4.50-5.90); RED CELL DISTRIBUTION WIDTH 13.5 % (11.6-17.2); WHITE BLOOD COUNT 12.9 TH/MM3 (4.0-11.0)
[2017-09-10] MEDS: METHOCARBAMOL 500 MG TAB PO SCH ×3 (05:48→21:52)
[2017-09-10] MEDS: oxyCODONE/ACETAMINOPHEN 10 MG/325 MG TAB PO PRN ×4 (05:49→19:18)
[2017-09-10] MEDS: RESP: ALBUTEROL 2.5 MG/IPRATROPIUM 0.5 MG NEB (PRN) NEB ×4 (06:01→20:27)
--- NOTE | 2017-09-10 07:12 | RADRPT ---
EXAM DATE/TIME: 09/10/2017 06:22 [facility] COMPARISON: CHEST SINGLE AP, September 09, 2017, 6:41. INDICATIONS : Short of breath, chest pain, evaluate pneumothorax and chest tube MEDICAL HISTORY : pneumothorax SURGICAL HISTORY : chest tube ENCOUNTER: Subsequent ACUITY: 1 week PAIN SCORE: 6/10 LOCATION: Left chest FINDINGS: A single AP erect expiratory view of the chest was obtained and demonstrates a left-sided chest tube in place with no pneumothorax. Multiple left rib fractures are again noted with no subcutaneous emphy sema. There is mild hazy opacity remaining at the left lung base without change. There is minimal pat nathan opacity in noted in the right perihilar region. The heart size is within normal limits. CONCLUSION: 1. Left-sided chest tube in place with no pneumothorax. 2. Stable hazy opacity at the left lung base. 3. Minimal patchy opacity in the right perihilar region. Raimundo López MD on September 10, 2017 at 7:05 Board Certified Radiologist. This report was verified electronically.
[2017-09-10] MEDS: BACITRACIN TOP OINT 15 GM TUBE TOP SCH ×2 (09:00→20:24)
[2017-09-10] MEDS: LACTULOSE SYRUP 20 GM/30 ML CUP PO SCH (09:00)
[2017-09-10] MEDS: MAGNESIUM HYDROXIDE SUSP 30 ML CUP PO SCH ×2 (09:00→20:22)
[2017-09-10] MEDS: guaiFENesin E.R. 600 MG TAB PO SCH ×2 (09:23→20:22)
[2017-09-10] MEDS: LIDOCAINE HCL 5% PATCH T-DERMAL SCH (09:24)
[2017-09-10] MEDS: AZITHROMYCIN 250 MG TAB PO SCH (09:24)
[2017-09-10] MEDS: DOCUSATE SODIUM 100 MG CAP PO SCH ×2 (09:24→20:22)
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
[2017-09-10] MEDS: ENOXAPARIN SODIUM 30 MG/0.3 ML SYRINGE SQ SCH (14:04)
[2017-09-10] MEDS: fentaNYL 50 MCG/HR PATCH T-DERMAL SCH (14:05)
[2017-09-10] MEDS: MORPHINE SULFATE 2 MG/ML INJ IV PUSH PRN ×2 (17:08→21:52)
[2017-09-10] MEDS: PANTOPRAZOLE SOD 40 MG DELAYED RELEASE TAB PO SCH (20:22)
[2017-09-11] VITALS (7 sets, daily range): BP systolic 114–132; BP diastolic 71–75; PULSE 82–99; RESP 18–20; TEMP 97–98.3; O2SAT 95–99
[2017-09-11] MEDS: ENOXAPARIN SODIUM 30 MG/0.3 ML SYRINGE SQ SCH ×3 (00:01→23:21)
[2017-09-11] MEDS: oxyCODONE/ACETAMINOPHEN 10 MG/325 MG TAB PO PRN ×6 (00:01→23:21)
[2017-09-11] MEDS: MORPHINE SULFATE 2 MG/ML INJ IV PUSH PRN (04:44)
[2017-09-11] MEDS: METHOCARBAMOL 500 MG TAB PO SCH ×3 (06:00→20:46)
--- NOTE | 2017-09-11 06:22 | RADRPT ---
EXAM DATE/TIME: 09/11/2017 05:45 [facility] COMPARISON: CHEST SINGLE AP, September 10, 2017, 6:22. INDICATIONS : Evaluate for pneumothorax- left side chest tube MEDICAL HISTORY : None. SURGICAL HISTORY : None. ENCOUNTER: Subsequent ACUITY: 1 week PAIN SCORE: 8/10 LOCATION: Bilateral chest FINDINGS: Left chest tube remains in place. Mild consolidation and small effusion seen at the base. No percepti ble pneumothorax. Left rib fractures are again noted. Minimal basilar atelectasis on the right. CONCLUSION: No significant change. Left chest tube remains in place. No pneumothorax. Srinivasan Owusu MD on September 11, 2017 at 6:20 Board Certified Radiologist. This report was verified electronically.
[2017-09-11] MEDS: guaiFENesin E.R. 600 MG TAB PO SCH ×2 (08:58→20:45)
[2017-09-11] MEDS: LIDOCAINE HCL 5% PATCH T-DERMAL SCH (08:58)
[2017-09-11] MEDS: DOCUSATE SODIUM 100 MG CAP PO SCH ×2 (08:58→20:46)
[2017-09-11] MEDS: AZITHROMYCIN 250 MG TAB PO SCH (08:58)
[2017-09-11] MEDS: LACTULOSE SYRUP 20 GM/30 ML CUP PO SCH (08:59)
[2017-09-11] MEDS: MAGNESIUM HYDROXIDE SUSP 30 ML CUP PO SCH ×2 (08:59→20:45)
[2017-09-11] MEDS: BACITRACIN TOP OINT 15 GM TUBE TOP SCH ×2 (09:01→20:46)
[2017-09-11] MEDS: RESP: ALBUTEROL 2.5 MG/IPRATROPIUM 0.5 MG NEB (PRN) NEB (10:36)
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
[2017-09-11] MEDS ORDERED: IBUP-232 PO (11:54)
[2017-09-11] MEDS ORDERED: LIDO1ADH4 T-DERMAL (11:54)
[2017-09-11] MEDS ORDERED: METH500T3 PO (11:54)
[2017-09-11] MEDS ORDERED: OXYC1TAB63 PO (11:54)
[2017-09-11] MEDS ORDERED: AZIT250T3 PO (11:54)
[2017-09-11] MEDS: PANTOPRAZOLE SOD 40 MG DELAYED RELEASE TAB PO SCH (17:55)
[2017-09-12] VITALS (7 sets, daily range): BP systolic 114–146; BP diastolic 59–80; PULSE 80–89; RESP 18–20; TEMP 96.6–99.5; O2SAT 96–99
[2017-09-12] MEDS: METHOCARBAMOL 500 MG TAB PO SCH ×3 (05:20→19:49)
--- NOTE | 2017-09-12 05:25 | RADRPT ---
EXAM DATE/TIME: 09/12/2017 04:44 [facility] COMPARISON: CHEST SINGLE AP, September 11, 2017, 5:45. INDICATIONS : Evaluate for pneumothorax, multiple left sided rib fractures. MEDICAL HISTORY : None. SURGICAL HISTORY : None. ENCOUNTER: Subsequent ACUITY: 1 week PAIN SCORE: 8/10 LOCATION: Left chest FINDINGS: Left chest tube has been removed. An apical pneumothorax is present, measures approximately 13 mm in maximal thickness. There is persistent parenchymal consolidation of the left lung base and a probable small left pleural effusion. Left rib fractures are again noted. Right lung remains clear. CONCLUSION: Left chest tube out. Small apical pneumothorax now present. Left base consolidation not significantly changed. Srinivasan Owusu MD on September 12, 2017 at 5:22 Board Certified Radiologist. This report was verified electronically.
[2017-09-12] MEDS ORDERED: OXYGENTANK NAS.CANULA (07:40)
[2017-09-12] MEDS ORDERED: OXYGENDME NAS.CANULA (07:40)
[2017-09-12] MEDS: DOCUSATE SODIUM 100 MG CAP PO SCH ×2 (08:43→19:53)
[2017-09-12] MEDS: AZITHROMYCIN 250 MG TAB PO SCH (08:43)
[2017-09-12] MEDS: LIDOCAINE HCL 5% PATCH T-DERMAL SCH (08:43)
[2017-09-12] MEDS: guaiFENesin E.R. 600 MG TAB PO SCH ×2 (08:44→19:49)
[2017-09-12] MEDS: ONDANSETRON HCL 4 MG/2 ML VIAL IV PUSH PRN ×2 (08:49→19:55)
[2017-09-12] MEDS: LACTULOSE SYRUP 20 GM/30 ML CUP PO SCH (08:50)
[2017-09-12] MEDS: MAGNESIUM HYDROXIDE SUSP 30 ML CUP PO SCH ×2 (08:50→19:53)
[2017-09-12] MEDS: BACITRACIN TOP OINT 15 GM TUBE TOP SCH ×2 (08:52→21:00)
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
[2017-09-12] MEDS: oxyCODONE/ACETAMINOPHEN 10 MG/325 MG TAB PO PRN ×2 (10:33→19:49)
[2017-09-12] MEDS: METOCLOPRAMIDE HCL 10 MG/2 ML VIAL IV PUSH SCH ×3 (10:36→22:00)
--- NOTE | 2017-09-12 10:48 | RADRPT ---
EXAM DATE/TIME: 09/12/2017 10:16 [facility] COMPARISON: No previous studies available for comparison. INDICATIONS : Distention and constipation with abdominal pain. MEDICAL HISTORY : None. SURGICAL HISTORY : Appendectomy. ENCOUNTER: Initial ACUITY: 2 days PAIN SCORE: 7/10 LOCATION: Bilateral abdomen. FINDINGS: There is distended bowel. It appears the colon is distended more than the small bowel. There appears to be the cecum is distended to 9.9 cm. Free air is not seen. A large amount of stool is not seen. CONCLUSION: Nonspecific dilated bowel. Srinivasan Gaming MD on September 12, 2017 at 10:44 Board Certified Radiologist. This report was verified electronically.
[2017-09-12] MEDS: ENOXAPARIN SODIUM 30 MG/0.3 ML SYRINGE SQ SCH ×2 (12:00→23:37)
[2017-09-12] MEDS: PANTOPRAZOLE SOD 40 MG DELAYED RELEASE TAB PO SCH (19:49)
[2017-09-12] MEDS: SODIUM CHLORIDE 0.9% FLUSH 10 ML FLUSH IV FLUSH PRN (19:55)
[2017-09-13 00:20] VITALS: BP 127/79; PULSE 61; RESP 19; TEMP 96.9; O2SAT 97
[2017-09-13 05:48] LABS: AUTOMATED NEUTROPHIL # 12.6 TH/MM3 (1.8-7.7); BASOPHIL # 0.1 TH/MM3 (0-0.2); BASOPHIL % 0.4 % (0.0-2.0); EOSINOPHIL # 0.7 TH/MM3 (0-0.4); EOSINOPHIL % 4.1 % (0.0-4.0); HEMATOCRIT 34.7 % (39.0-51.0); HEMOGLOBIN 11.6 GM/DL (13.0-17.0); LYMPH % 8.8 % (9.0-44.0); LYMPHOCYTE # 1.5 TH/MM3 (1.0-4.8); MEAN CELL VOLUME 89.2 FL (80.0-100.0); MEAN CORPUSCULAR HEMOGLOBIN 29.9 PG (27.0-34.0); MEAN CORPUSCULAR HGB CONC 33.6 % (32.0-36.0); MEAN PLATELET VOLUME 7.1 FL (7.0-11.0); MONO % 12.8 % (0.0-8.0); MONOCYTE # 2.2 TH/MM3 (0-0.9); NEUT % 73.9 % (16.0-70.0); PLATELET COUNT 451 TH/MM3 (150-450); RED BLOOD COUNT 3.89 MIL/MM3 (4.50-5.90); RED CELL DISTRIBUTION WIDTH 13.6 % (11.6-17.2)
[2017-09-13] MEDS: METOCLOPRAMIDE HCL 10 MG/2 ML VIAL IV PUSH SCH ×3 (06:00→22:00)
[2017-09-13] MEDS: METHOCARBAMOL 500 MG TAB PO SCH ×3 (06:00→22:00)
[2017-09-13 06:09] LABS: ALBUMIN 2.9 GM/DL (3.4-5.0); ALT (GPT) 41 U/L (12-78); AST (GOT) 44 U/L (15-37); BICARBONATE 25.9 MEQ/L (21.0-32.0); CALCIUM 8.7 MG/DL (8.5-10.1); CHLORIDE 99 MEQ/L (98-107); CREATININE 0.94 MG/DL (0.60-1.30); GLOMERULAR FILTRATION RATE 83 ML/MIN (>89); GLUCOSE,RANDOM 107 MG/DL (74-106); SODIUM (NA) 133 MEQ/L (136-145)
[2017-09-13 06:11] LABS: ALKALINE PHOSPHATASE 62 U/L (45-117); BLOOD UREA NITROGEN 30 MG/DL (7-18); TOTAL BILIRUBIN ADULT 1.3 MG/DL (0.2-1.0); TOTAL PROTEIN 6.8 GM/DL (6.4-8.2)
--- NOTE | 2017-09-13 06:49 | RADRPT ---
EXAM DATE/TIME: 09/13/2017 05:55 [facility] COMPARISON: CHEST SINGLE AP, September 12, 2017, 4:44. INDICATIONS : Evaluate for pneumothorax, multiple left side rib fractures. MEDICAL HISTORY : None. SURGICAL HISTORY : None. ENCOUNTER: Subsequent ACUITY: 1 week PAIN SCORE: Non-responsive. LOCATION: Bilateral chest FINDINGS: A single portable frontal view of the chest shows an unchanged small left apical pneumothorax. Left b asilar consolidation is stable. Left rib fractures unchanged. Heart is normal in size. Right lung is clear. CONCLUSION: Unchanged small left pneumothorax and basilar consolidation. Brendon Lucio Jr., MD on September 13, 2017 at 6:46 Board Certified Radiologist. This report was verified electronically.
[2017-09-13 07:16] LABS: BANDS 2 % (0-6); BASOPHILS 1 % (0-2); LYMPHOCYTES 9 % (9-44); MONOCYTES 5 % (0-8); MYELOCYTES 2 % (0-0); NEUTROPHIL # MANUAL DIFF 13.4 TH/MM3 (1.8-7.7); POLYS (SEG NEUTROPHILS) 75 % (16-70)
[2017-09-13 08:00] VITALS: BP 124/72; PULSE 93; RESP 16; TEMP 98.7; O2SAT 93
[2017-09-13] MEDS: LIDOCAINE HCL 5% PATCH T-DERMAL SCH (08:38)
[2017-09-13] MEDS: guaiFENesin E.R. 600 MG TAB PO SCH ×2 (08:38→23:47)
[2017-09-13] MEDS: MAGNESIUM HYDROXIDE SUSP 30 ML CUP PO SCH ×2 (08:41→21:00)
[2017-09-13] MEDS: LACTULOSE SYRUP 20 GM/30 ML CUP PO SCH (08:41)
[2017-09-13] MEDS: BACITRACIN TOP OINT 15 GM TUBE TOP SCH ×2 (08:42→23:48)
[2017-09-13] MEDS: DOCUSATE SODIUM 100 MG CAP PO SCH ×2 (08:42→23:47)
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
[2017-09-13] MEDS: LEVOFLOXACIN 500 MG TAB PO SCH (11:24)
[2017-09-13] MEDS: ENOXAPARIN SODIUM 30 MG/0.3 ML SYRINGE SQ SCH ×2 (11:25→23:48)
[2017-09-13 12:00] VITALS: BP 118/66; PULSE 81; RESP 16; TEMP 98.8; O2SAT 93; O2SAT 96
[2017-09-13] MEDS: fentaNYL 50 MCG/HR PATCH T-DERMAL SCH (15:14)
[2017-09-13 16:00] VITALS: BP 125/76; PULSE 84; RESP 16; TEMP 99.2; O2SAT 97
[2017-09-13] MEDS: PANTOPRAZOLE SOD 40 MG DELAYED RELEASE TAB PO SCH (19:00)
[2017-09-13 20:48] VITALS: O2SAT 97
[2017-09-13 21:00] VITALS: BP 124/67; PULSE 82; RESP 18; TEMP 98.8; O2SAT 97
[2017-09-14] VITALS: BP 121/68; PULSE 90; RESP 17; TEMP 98.9; O2SAT 99
[2017-09-14 06:19] LABS: AUTOMATED NEUTROPHIL # 10.1 TH/MM3 (1.8-7.7); BASOPHIL # 0.1 TH/MM3 (0-0.2); BASOPHIL % 0.9 % (0.0-2.0); EOSINOPHIL # 0.8 TH/MM3 (0-0.4); EOSINOPHIL % 5.5 % (0.0-4.0); HEMOGLOBIN 10.6 GM/DL (13.0-17.0); LYMPH % 11.6 % (9.0-44.0); LYMPHOCYTE # 1.7 TH/MM3 (1.0-4.8); MEAN CELL VOLUME 90.5 FL (80.0-100.0); MEAN CORPUSCULAR HEMOGLOBIN 30.1 PG (27.0-34.0); MEAN CORPUSCULAR HGB CONC 33.3 % (32.0-36.0); MEAN PLATELET VOLUME 6.6 FL (7.0-11.0); MONO % 12.7 % (0.0-8.0); MONOCYTE # 1.9 TH/MM3 (0-0.9); NEUT % 69.3 % (16.0-70.0); PLATELET COUNT 482 TH/MM3 (150-450); RED BLOOD COUNT 3.53 MIL/MM3 (4.50-5.90); RED CELL DISTRIBUTION WIDTH 13.8 % (11.6-17.2); WHITE BLOOD COUNT 14.5 TH/MM3 (4.0-11.0)
--- NOTE | 2017-09-14 06:39 | RADRPT ---
EXAM DATE/TIME: 09/14/2017 05:40 [facility] COMPARISON: CHEST SINGLE AP, September 13, 2017, 5:55. INDICATIONS : Short of breath, left side chest pain, follow up for pneumothorax post chest tube removal MEDICAL HISTORY : rib fractures, pneumothorax SURGICAL HISTORY : chest tube removed from left side ENCOUNTER: Subsequent ACUITY: 1 week PAIN SCORE: 5/10 LOCATION: Left chest FINDINGS: A single portable frontal view of the chest shows worsening consolidation within the left base. No ef fusions. Right lung is clear. No pneumothoraces. Multiple left-sided rib fractures. Heart is normal i n size. CONCLUSION: Worsening consolidation at the left base. Brendon Lucio Jr., MD on September 14, 2017 at 6:37 Board Certified Radiologist. This report was verified electronically.
[2017-09-14 06:44] LABS: ALBUMIN 2.4 GM/DL (3.4-5.0); AST (GOT) 48 U/L (15-37); BICARBONATE 29.4 MEQ/L (21.0-32.0); BLOOD UREA NITROGEN 23 MG/DL (7-18); CALCIUM 8.3 MG/DL (8.5-10.1); CHLORIDE 99 MEQ/L (98-107); CREATININE 0.91 MG/DL (0.60-1.30); GLOMERULAR FILTRATION RATE 86 ML/MIN (>89); GLUCOSE,RANDOM 91 MG/DL (74-106); SODIUM (NA) 135 MEQ/L (136-145)
[2017-09-14 06:45] LABS: ALT (GPT) 40 U/L (12-78)
[2017-09-14 06:47] LABS: ALKALINE PHOSPHATASE 58 U/L (45-117); TOTAL BILIRUBIN ADULT 1.2 MG/DL (0.2-1.0); TOTAL PROTEIN 5.8 GM/DL (6.4-8.2)
[2017-09-14 07:23] LABS: BANDS 4 % (0-6); LYMPHOCYTES 14 % (9-44); METAMYELOCYTES 1 % (0-1); MONOCYTES 12 % (0-8); MYELOCYTES 1 % (0-0); NEUTROPHIL # MANUAL DIFF 10.3 TH/MM3 (1.8-7.7); POLYCHROMASIA 2.8 % (0.0-1.9); POLYS (SEG NEUTROPHILS) 65 % (16-70)
[2017-09-14 08:00] VITALS: BP 113/67; PULSE 83; RESP 16; TEMP 98.6; O2SAT 96
[2017-09-14] MEDS: MAGNESIUM HYDROXIDE SUSP 30 ML CUP PO SCH (09:00)
[2017-09-14] MEDS: DOCUSATE SODIUM 100 MG CAP PO SCH (09:00)
[2017-09-14] MEDS: LACTULOSE SYRUP 20 GM/30 ML CUP PO SCH (09:00)
[2017-09-14 09:32] VITALS: O2SAT 95
[2017-09-14] MEDS: guaiFENesin E.R. 600 MG TAB PO SCH (09:49)
[2017-09-14] MEDS: LEVOFLOXACIN 500 MG TAB PO SCH (09:49)
[2017-09-14] MEDS: LIDOCAINE HCL 5% PATCH T-DERMAL SCH (09:49)
[2017-09-14] MEDS ORDERED: FUROSEMIDE 100 MG/10 ML VIAL IV PUSH ONE (11:00)
[2017-09-14 12:00] VITALS: BP 119/69; PULSE 82; RESP 16; TEMP 96.8; O2SAT 98
[2017-09-14] MEDS: METHOCARBAMOL 500 MG TAB PO SCH (12:35)
[2017-09-14] MEDS: METOCLOPRAMIDE HCL 10 MG/2 ML VIAL IV PUSH SCH (12:35)
[2017-09-14] MEDS: ENOXAPARIN SODIUM 30 MG/0.3 ML SYRINGE SQ SCH (12:38)
[2017-09-14] MEDS ORDERED: LEVA750T9 PO (12:38)
[2017-09-14] MEDS ORDERED: LEVOFLOXACIN 250 MG TAB PO ONE (12:45)
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
[2017-09-15] MEDS ORDERED: LEVOFLOXACIN 750 MG TAB PO SCH (09:00)
[2017-09-16] MEDS ORDERED: REMOVE OLD DURAGESIC (FENTANYL) PATCH T-DERMAL SCH (14:00)
== END 2017-09-14 17:50 | disposition home or self-care (01) | DRG 199 ==
LOC: NEPI 15:53 → NEDA 19:03 → MERGE 19:03 → EDBD 19:03 → N06A 19:55
PROVIDERS: ADMIT Surgery; ATTEND Surgery
PROC: 0W9B30Z Drainage of Left Pleural Cavity with Drainage Device, Percutaneous Approach (ICD-10-PCS; principal; 2017-09-06)
DX: S27.0XXA Traumatic pneumothorax, initial encounter (principal); J18.1 Lobar pneumonia, unspecified organism; S27.321A Contusion of lung, unilateral, initial encounter; S22.42XA Multiple fractures of ribs, left side, initial encounter for closed fracture; S06.0X9A Concussion with loss of consciousness of unspecified duration, initial encounter; M19.90 Unspecified osteoarthritis, unspecified site; M25.512 Pain in left shoulder; R11.2 Nausea with vomiting, unspecified; R40.2412 Glasgow coma scale score 13-15, at arrival to emergency department; R41.3 Other amnesia; V29.9XXA Motorcycle rider (driver) (passenger) injured in unspecified traffic accident, initial encounter
CPT/HCPCS: 32557; 70450; 71010; 71045; 71260; 72125; 72170; 73030; 74000; 74177; 80048; 80053; 82435; 82565; 82947; 84132; 84295; 84520; 85007; 85025; 85027; 85610; 85730; 86850; 86900; 86901; 90715; 94150; 94640; 94664; 94667; 94668; 96374; 96375; 99291; C1729; C1769; C9113; G0390; J1170; J1650; J1885; J1940; J2060; J2270; J2405; J2765; J2800; J3010; J7050; Q9967